=== PATIENT | female | born 1980 | race Native Hawaiian/Other Pacific Islander ===

== ENCOUNTER 2024-04-18 17:33 | Emergency (ER) | payer SELFPAY ==
[~2024-04-18] VITALS: Ht 175.3 cm; Wt 100.5 kg
[2024-04-18] MEDS ORDERED: METF-1211 PO (17:37)
[2024-04-18] MEDS ORDERED: TRAZ-257 PO (17:37)
[2024-04-18 17:38] VITALS: TEMP 98.4
[2024-04-18 18:31] LABS: BASOPHILS % (AUTO) 0.2 % (0.0-2.0); EOSINOPHILS % (AUTO) 1.7 % (1.0-6.0); HEMATOCRIT 35.1 % (36-46); HEMOGLOBIN 11.3 g/dL (12.0-16.0); LYMPHOCYTES # (AUTO) 3.4 K/uL (1.0-4.8); LYMPHOCYTES % (AUTO) 32.7 % (22.0-44.0); MEAN CORPUSCULAR HEMOGLOBIN 24.2 pg (26.0-34.0); MEAN CORPUSCULAR HGB CONC 32.3 G/dL (31.0-37.0); MEAN CORPUSCULAR VOLUME 75 fL (80-100); MONOCYTES # (AUTO) 0.8 K/uL (0.1-1.0); MONOCYTES % (AUTO) 7.5 % (2.0-9.0); NEUTROPHILS % (AUTO) 57.9 % (40.0-70.0); PLATELET COUNT (AUTO) 255 K/uL (150-450); RED BLOOD CELL COUNT(AUTO) 4.69 MIL/uL (4.00-5.20); RED CELL DISTRIBUTION WIDTH 21.2 % (11.5-14.5); WHITE BLOOD COUNT (AUTO) 10.4 K/uL (4.5-11.0)
[2024-04-18 18:40] LABS: ANION GAP 10 mmol/L (8-16); CARBON DIOXIDE 25 mmol/L (22-29); CHLORIDE 101 mmol/L (98-107); GLOMERULAR FILTR. RATE CALC > 60 mL/min (>60); GLUCOSE,RANDOM 95 mg/dL (70-110); POTASSIUM 3.6 mmol/L (3.5-5.1); SODIUM SERUM 136 mmol/L (136-145); UREA NITROGEN, BLOOD 17 mg/dL (7-18)
[2024-04-18 18:47] LABS: RBC MORPHOLOGY COMMENT ABNORMAL RBC MORPH
[2024-04-18 18:50] LABS: TROPONIN I-HIGH SENSITIVITY 52 ng/L (<51)
[2024-04-18] MEDS ORDERED: 0.9% SODIUM CHLORIDE 10 ML SYRINGE IVP ONE (19:18)
[2024-04-18] MEDS ORDERED: IOHEXOL 350 MG/ML 100 ML VIAL ONE (19:18)
[2024-04-18 20:41] VITALS: BP 141/82; PULSE 105; RESP 18; O2SAT 98
[2024-04-18 21:23] LABS: TROPONIN I-HIGH SENSITIVITY 47 ng/L (<51)
== END 2024-04-19 00:28 | disposition admitted as inpatient to this hospital (09) ==
LOC: EMS 17:33
DX: I51.7 Cardiomegaly (principal); R79.89 Other specified abnormal findings of blood chemistry; R07.9 Chest pain, unspecified; M54.2 Cervicalgia; M25.511 Pain in right shoulder; Z90.49 Acquired absence of other specified parts of digestive tract
CPT/HCPCS: 99285; 71275; 71045; 80048; 84484; 84703; 85025; 74177; 93005; 36415; Q9967

== ENCOUNTER 2024-04-21 14:09 | Emergency (ER) | payer SELFPAY ==
[~2024-04-21] VITALS: Ht 175.3 cm; Wt 99.5 kg
[~2024-04-21 14:09] MED LIST: METF-1211 PO; TRAZ-257 PO
[2024-04-21 14:14] VITALS: TEMP 98.5
[2024-04-21 14:49] LABS: BASOPHILS % (AUTO) 0.8 % (0.0-2.0); EOSINOPHILS % (AUTO) 1.6 % (1.0-6.0); HEMATOCRIT 36.4 % (36-46); HEMOGLOBIN 11.6 g/dL (12.0-16.0); LYMPHOCYTES % (AUTO) 29.6 % (22.0-44.0); MEAN CORPUSCULAR HGB CONC 31.9 G/dL (31.0-37.0); MEAN CORPUSCULAR VOLUME 75 fL (80-100); MONOCYTES # (AUTO) 0.4 K/uL (0.1-1.0); MONOCYTES % (AUTO) 5.3 % (2.0-9.0); NEUTROPHILS # (AUTO) 4.2 K/uL (1.8-7.7); NEUTROPHILS % (AUTO) 62.7 % (40.0-70.0); PLATELET COUNT (AUTO) 247 K/uL (150-450); RED BLOOD CELL COUNT(AUTO) 4.84 MIL/uL (4.00-5.20); RED CELL DISTRIBUTION WIDTH 20.9 % (11.5-14.5); WHITE BLOOD COUNT (AUTO) 6.7 K/uL (4.5-11.0)
[2024-04-21 15:00] LABS: ANION GAP 10 mmol/L (8-16); CALCIUM, TOTAL 8.7 mg/dL (8.8-10.5); CARBON DIOXIDE 23 mmol/L (22-29); CHLORIDE 103 mmol/L (98-107); CREATININE 0.78 mg/dL (0.60-1.30); GLOMERULAR FILTR. RATE CALC > 60 mL/min (>60); GLUCOSE,RANDOM 106 mg/dL (70-110); POTASSIUM 3.9 mmol/L (3.5-5.1); SODIUM SERUM 136 mmol/L (136-145); UREA NITROGEN, BLOOD 13 mg/dL (7-18)
[2024-04-21 15:09] LABS: TROPONIN I-HIGH SENSITIVITY 37 ng/L (<51)
[2024-04-21] MEDS: KETOROLAC TROMETHAMINE 60 MG/2 ML VIAL IM ONE (15:53)
[2024-04-21] MEDS: HYDROCODONE/ACETAMINOPHEN 5-325 MG TABLET PO ONE (15:54)
[2024-04-21] MEDS: METHOCARBAMOL 500 MG TABLET PO ONE (15:54)
[2024-04-21 16:45] VITALS: BP 150/73; PULSE 86; RESP 17; O2SAT 99
[2024-04-21] MEDS ORDERED: HYDR-4062 PO (17:35)
[2024-04-21] MEDS ORDERED: IBUP-1554 PO (17:35)
[2024-04-21] MEDS ORDERED: METH-659 PO (17:35)
== END 2024-04-21 18:33 | disposition home or self-care (01) ==
LOC: EMS 14:09
DX: R07.89 Other chest pain (principal); M62.838 Other muscle spasm; R51.9 Headache, unspecified; E11.9 Type 2 diabetes mellitus without complications; Z90.49 Acquired absence of other specified parts of digestive tract
CPT/HCPCS: 99285; 71045; 80048; 84484; 85025; 36415; 93005; 96372; J1885